=== PATIENT | male | born 1945 | race Caucasian/White ===

== ENCOUNTER → 2016-05-19 | Day surgery (SDC) | payer MEDICARE, OTHER ==
[~2016-05-19] MED LIST: ACETAMINOPHEN650 M3 PO; AMOXICILLIN PO; BIAXIN PO; CARAFATE1 G PO; LINZESS290 MCG PO; LORAZEPAM0.5 MG PO; LORAZEPAM1 MG PO; OMEPRAZOLE40 M1 PO; PROTONIX PO; SEROQUEL PO
--- NOTE | ~2016-05-19 | OR ---
Unit #: [id number] #: [id number] Patient: BHUPINDER LAWTON [id number] [address] [place], [place] [address] [id number] MR#: [id number] NAME: BHUPINDER LAWTON. ROOM: Date of Procedure: 05/19/2016 Admission Date: 05/19/2016 Surgeon: Juan Goldberg M.D. : 1945 Attending Physician: Juan Goldberg M.D. Referring Physician: Juan Goldberg M.D. Primary Care Physician: Peg Irwin M.D. OPERATIVE REPORT JOB NOTE: CC: PRIMARY CARE PHYSICIAN. PROCEDURE PERFORMED Esophagogastroduodenoscopy to descending duodenum. Colonoscopy with snare polypectomy. INDICATIONS FOR PROCEDURE The patient with history of Preston esophagus, also with history of bleeding from the rectum, history of colon polyps, undergoing evaluation with upper endoscopy and colonoscopy. MEDICATIONS Monitored anesthesia. POSTOPERATIVE FINDINGS 1. 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 2. Long segment of Preston esophagus. Biopsies not taken, because of risk of bleeding. 3. Mild gastritis. 4. Normal duodenum and distal duodenum. 5. Polyp 1 cm in transverse colon, snared and sent for histopathology. 6. Polyp 6 mm in transverse colon, snared and sent for histopathology. 7. Internal hemorrhoids. 8. Rest of the colon exam was normal. PLAN Given the general condition, I would recommend no further scopes on the patient. Continue PPI therapy long-term. DESCRIPTION OF PROCEDURE The patient was explained of the procedure, risks, and benefits along with risks and benefits of anesthesia. Informed consent was obtained from commercial finance analyst. He was brought to the endoscopy room. Propofol anesthesia was given. Bite block was placed. The scope was passed down the mouth and esophagus, stomach, duodenum, and distal duodenum. Findings as described. No biopsies taken. Gently, I pulled it out of the patient's mouth. At this time, he was turned around and repositioned for colonoscopy. Rectal exam was done, which was normal. Colonoscope was lubricated, passed up the rectum, advanced under direct vision all the way to the cecum. Findings as described. Polypectomies were carried out successfully. I retroflexed in the rectum, internal hemorrhoids noted. Unit #: [id number] #: [id number] Patient: BHUPINDER LAWTON Gently, the scope was pulled out. He tolerated it well. Dictated by... Derian Raphael/joey TD: 06/04/2016 02:21 JOB #: [id number] OPERATIVE REPORT Page 1 of 1 X Juan Goldberg MD X PROCEDURE OPERATIVE NOTE
[2016-05-19 15:31] LABS: BASOPHIL% 0.3 % (0-2.5); EOSINOPHIL% 0.2 % (0.0-7.0); HEMATOCRIT 45.4 % (38.0-50.0); HEMOGLOBIN 14.7 gm/dL (13.0-16.0); LYMPHOCYTE# 1.5 X10e3 (1.0-3.5); LYMPHOCYTE% 13.8 % (17.0-45.0); MEAN CELL VOLUME 86.5 FL (83-96); MEAN CORPUSCULAR HGB CONC 32.4 g/dL (30-36); MEAN PLATELET VOLUME 9.2 FL (6.5-11.5); MONOCYTE# 0.9 X10e3 (0-1.0); MONOCYTE% 8.3 % (3.0-12.0); NEUTROPHIL# 8.3 X10e3 (1.5-7.1); NEUTROPHIL% 77.4 % (40-75); PLATELET COUNT 234 X10e3 (140-420); RED BLOOD COUNT 5.25 X10e (3.90-5.60); WHITE BLOOD COUNT 10.7 X10e3 (4.0-10.5)
[2016-05-19 15:33] LABS: DIFF IND NO
== END | disposition home or self-care (01) ==
LOC: COPS 07:22
PROVIDERS: Internal Medicine
DX: K62.5 Hemorrhage of anus and rectum (principal); K22.70 Barrett's esophagus without dysplasia; K29.70 Gastritis, unspecified, without bleeding; D12.3 Benign neoplasm of transverse colon; K64.8 Other hemorrhoids
CPT/HCPCS: 85025; 88305